=== PATIENT | male | born 1980 | race Caucasian/White ===

== ENCOUNTER 2020-11-30 22:25 | Emergency (ER) | payer SELFPAY ==
[2020-11-30 22:34] VITALS: BP 163/87; PULSE 96; RESP 16; TEMP 36.6; O2SAT 95; BMI 27.3
--- NOTE | 2020-11-30 23:40 | ED_ITS ---
HPI - Extremity Problem General: Chief complaint: Extremity Injury, Upper Stated complaint: hand assessment Time Seen by Provider: 11/30/20 23:25 Source: patient Mode of arrival: ambulatory Limitations: no limitations History of Present Illness: HPI Narrative: Patient is a 40-year-old male who presents to ED today with known open fractures to his left third and fourth fingers. He states 2 days ago a grinding wheel struck him on his left hand causing lacerations and open displaced fractures. He was seen at [place] ED and was recommended transfer to [place] for hand surgery. Patient has transfer form/paperwork with him that states he would be POV however patient states he never ended up going because he would not have a ride home. He states since his visit at [place] they fingers are now extremely swollen and more painful. MD Complaint: extremity pain and extremity swelling Onset (ago): day(s) Associated symptoms: Deny chest pain or fever(s) Review of Systems Const: Denies: fever(s), chills, body aches, fatigue or malaise Card: Denies: chest pain Resp: Denies: dyspnea GI: Denies: abdominal pain Musc: Reports: extremity pain (L hand), extremity swelling (L hand), joint pain (L finger) and joint swelling Skin/Breast: Reports: other (lacerations) Neuro: Denies: numbness in extremities or sensory changes Physical Exam Const: COMMON NORMALS: no acute distress, average body habitus, patient oriented x3, no limitations, healthy appearing, alert and well nourished Resp: COMMON NORMALS: normal respiratory effort and clear to auscultation bilaterally AUSCULTATION: clear to auscultation bilaterally Cardio: COMMON NORMALS: regular rate and regular rhythm RATE: regular rate RHYTHM: regular rhythm Extremity: OTHER: patient has diffuse swelling throughout dorsum of L hand; he has deep extensive lacerations to 4th finger over dorsal proximal phalanx and 3rd finger over dorsal PIP; both digits are extremely swollen with virtually zero ROM secondary to this; cap refill normal; sensory intact; no purulent drainage noted Neuro: COMMON NORMALS: patient oriented x3 SENSORIUM/ORIENTATION: Yes alert Course Consultations: Consultation #1: Dr. Gomez hand surgery-would be available to see patient in office next week Consultation #2: Dr. Boogie hand surgery-states his office can contact patient on Wednesday and see then Vital Signs: Vital signs: Vital Signs Temperature 97.8 F 11/30/20 22:34 Pulse Rate 98 12/01/20 00:00 Respiratory Rate 17 12/01/20 00:16 Blood Pressure 163/87 11/30/20 22:34 Pulse Oximetry 98 12/01/20 00:16 MDM - Extremity (Nontraumatic) MDM Narrative: Medical decision making narrative: According to patient and transfer paperwork that he has, patient received adequate medical screening in [place] and had an accepting hand surgeon at the time in [place]. Unfortunately patient refused to complete this transfer stating that [place] was too far away and he did not have a ride home. He is now requesting that I transfer him to [place]. I have spoken to Dr. Price and Dr. Hawley at [facility], both of which state this is not an emergency and would see him in office this week. Wounds were copiously irrigated and redressed and will be re-splinted. Dr. Hawley's office stated they could contact patient on Wednesday (closed on Wednesday because of holiday). Transfer line was given updated phone numbers. Patient given 1g ancef here and placed on Keflex. Strict return to ED precautions given. Lab Data: Labs: Lab Results 11/30/20 11/30/20 Range/Units 23:57 23:57 WBC 7.3 (4.0-10.0) 10^3/ uL RBC 4.44 (4.1-5.3) 10^6/u L Hgb 13.2 (11.7-16.6) g/dL Hct 39.6 L (42.0-52.0) % MCV 89.2 (80-94) fL MCH 29.7 (28.0-34.0) pg MCHC 33.3 (30.0-36.0) g/dL RDW 12.4 (12.1-15.1) % Plt Count 258 (130-400) 10^3/c mm MPV 9.4 (7.4-10.4) fL Neut % (Auto) 45.8 % Lymph % (Auto) 38.9 % [place] % (Auto) 10.1 % Eos % (Auto) 4.4 % Baso % (Auto) 0.5 % Neut # (Auto) 3.35 (1.8-7.7) 10^3/u L Lymph # (Auto) 2.8 (0.8-4.8) 10^3/u L [place] # (Auto) 0.7 (0.2-0.9) 10^3/u L Eos # (Auto) 0.3 (0.0-0.8) 10^3/u L Baso # (Auto) 0.0 (0.0-0.1) 10^3/u L Nucleated RBC % (a uto) 0 % Nucleated RBCs # 0.0 /100WBC Sodium 139 (136-145) mmol/L Potassium 3.9 (3.5-5.1) mmol/L Chloride 106 (98-107) mmol/L Carbon Dioxide 27 (22-29) mmol/L Anion Gap 9.9 (5-19) BUN 10 (6-20) mg/dL Creatinine 0.9 (0.7-1.2) mg/dL GFR Calculation 93.9 (90-130) mL/min Glucose 70 (65-115) mg/dL Calculated Osmolal ity 285 (285-295) mOsm/k g Calcium 8.9 (8.5-10.5) mg/dL Total Bilirubin 0.3 (0.15-1.2) mg/dL AST 20 (0-40) U/L ALT 17 (0-41) U/L Alkaline Phosphata se 78 (40-130) IU/L C-Reactive Protein 12.9 H (0.0-4.9) mg/L Total Protein 6.9 (6.6-8.7) g/dL Albumin 4.0 (3.5-5.2) g/dL Globulin 2.9 (1.3-4.6) g/dL Imaging Data^: XR L hand: Radiologist's impression: [facility] [address] [place] [address] XRay Report Signed Patient: Michael Velez Unit #: [id number] : 1980 Age/Sex: 40 / M ADM Date: 11/30/20 Loc: ER Room/Bed: Attending Dr: Ordering Provider/Ordering MD: Whitney Young Date of Service: 11/30/20 Procedure(s): XR hand LT min 3V* [id number] Accession Number(s): [id number] Report Number: [id number] PROCEDURE INFORMATION: Exam: XR Left Hand Exam date and time: 11/30/2020 11:39 PM Age: 40 years old Clinical indication: Injury or trauma; Injury details: Caught left hand in circular saw 3 days ago. Lacerations and swelling TECHNIQUE: Imaging protocol: XR Left hand. Views: 3 or more views. COMPARISON: No relevant prior studies available. FINDINGS: Bones/joints: Comminuted fracture through the midshaft middle finger proximal phalanx with displacement and angulation multiple tiny bone fragments consistent circular saw injury. Oblique fracture through the proximal shaft of the ring finger proximal phalanx with displacement and angulation. Soft tissues: Normal. XR/XR hand LT min 3V* [id number] IMPRESSION: 1. Comminuted fracture through the midshaft middle finger proximal phalanx with displacement and angulation multiple tiny bone fragments consistent circular saw injury. 2. Oblique fracture through the proximal shaft of the ring finger proximal phalanx with displacement and angulation. Dictated By: Joey Torrez MD Signed By: Joey Torrez MD Signed Date/Time: 12/01/20 010 DD/ 005 Discharge Plan Discharge Patient Disposition: Home Clinical Impression: Open fracture of phalanx of left middle finger Qualifiers: Encounter type: initial encounter Phalanx: proximal Fracture alignment: displaced Qualified Code(s): S62.613B - Displaced fracture of proximal phalanx of left middle finger, initial encounter for open fracture Open fracture of phalanx of left ring finger Qualifiers: Encounter type: initial encounter Phalanx: proximal Fracture alignment: nondisplaced Qualified Code(s): S62.645B - Nondisplaced fracture of proximal phalanx of left ring finger, initial encounter for open fracture Condition: Stable Prescriptions: New hydrocodone-acetaminophen 5-325 mg tablet 1 tab PO Q6H PRN (Reason: pain) Qty: 20 RF: 0 cephalexin 500 mg capsule 500 mg PO Q6H 7 Days Qty: 28 RF: 0 Discharge Orders: Discharge ED (Routine); Ordered 12/01/20 Ordered By: Whitney Young Patient Instructions: Opioid Safety Activity Restrictions/Additional Instructions: [facility] is committed to fighting the nationwide opiate epidemic. We are providing ALL patients with information regarding opiate safety. If you received opiate pain medication during your stay or if you received a prescription for opiate pain medication-please review this handout. If not, you may disregard. Thank you. As we discussed Dr. Hawley with [facility] hand surgery (his office) should contact you on Wednesday with follow up appointment. You need to begin your antibiotics immediately. Elevate the extremity to help with swelling. You need to return to the emergency department for worsening pain, swelling, purulent discharge, severe redness or heat to the fingers and hand, streaking up your arm, or any other concerns you may have. Coding Level of Care Code ED Radiographer Angiogram for Russ Zafar
[2020-12-01] VITALS: PULSE 98; RESP 17; O2SAT 98
[2020-12-01 00:02] LABS: Basophils % 0.5 %; Eosinophils # 0.3 10^3/uL (0.0-0.8); Eosinophils % 4.4 %; Hematocrit 39.6 % (42.0-52.0); Hemoglobin 13.2 g/dL (11.7-16.6); Lymphocytes # 2.8 10^3/uL (0.8-4.8); Lymphocytes % 38.9 %; Mean Corpuscular HGB Conc 33.3 g/dL (30.0-36.0); Mean Corpuscular Hemoglobin 29.7 pg (28.0-34.0); Mean Corpuscular Volume 89.2 fL (80-94); Mean Platelet Volume 9.4 fL (7.4-10.4); Monocytes # 0.7 10^3/uL (0.2-0.9); Monocytes % 10.1 %; Neutrophils # 3.35 10^3/uL (1.8-7.7); Neutrophils % 45.8 %; Nucleated Red Blood Cells % 0 %; Platelet Count 258 10^3/cmm (130-400); Red Blood Count 4.44 10^6/uL (4.1-5.3); Red Cell Distribution Width 12.4 % (12.1-15.1); White Blood Count 7.3 10^3/uL (4.0-10.0)
[2020-12-01 00:16] VITALS: RESP 17; O2SAT 98
[2020-12-01] MEDS: morphine 4 mg/mL SDV 1 mL IVP (00:16)
[2020-12-01] MEDS: ceFAZolin 1,000 mg SDV 1000 MG IVP (00:16)
[2020-12-01] MEDS: ondansetron 2 mg/ML SDV 2 mL 4 MG IVP (00:17)
[2020-12-01 00:31] LABS: Alanine Aminotransferase 17 U/L (0-41); Alkaline Phosphatase 78 IU/L (40-130); Anion Gap 9.9 (5-19); Aspartate Amino Transferase 20 U/L (0-40); Blood Urea Nitrogen 10 mg/dL (6-20); C Reactive Protein 12.9 mg/L (0.0-4.9); Calcium 8.9 mg/dL (8.5-10.5); Carbon Dioxide 27 mmol/L (22-29); Chloride 106 mmol/L (98-107); Globulin 2.9 g/dL (1.3-4.6); Glomerular Filtration Rate 93.9 mL/min (90-130); Glucose 70 mg/dL (65-115); Osmolality Calculated 285 mOsm/kg (285-295); Potassium 3.9 mmol/L (3.5-5.1); Sodium 139 mmol/L (136-145); Total Bilirubin 0.3 mg/dL (0.15-1.2); Total Protein 6.9 g/dL (6.6-8.7)
--- NOTE | 2020-12-01 01:26 | PC.NURSE ---
Patient sent home with 4 tabs hydrocodone/acetaminophen 5mg/325mg to take at home per provider order. Patient also sent home with 4 tabs cephalexin 500 mg PO per provider order.
[2020-12-01 01:39] VITALS: BP 149/99; PULSE 89; RESP 17; TEMP 36.6; O2SAT 99
--- NOTE | 2020-12-03 10:41 | DCPLANNER ---
disaster recovery manager called the office of Dr. Hawley, [facility] hand surgery. disaster recovery manager was told that patient had a follow up appointment scheduled for today, 12.03.20, at 11:20 and patient is aware of appointment.
--- NOTE | 2021-01-01 13:33 | DCPLANNER ---
Patient had a follow up appointment scheduled for 12.03.20 with Yomaira snow - patient did not attend appointment.
== END 2020-12-01 01:43 | disposition home or self-care (01) ==
PROVIDERS: Emergency Provider Physician Assistant
DX: S62.613B Displaced fracture of proximal phalanx of left middle finger, initial encounter for open fracture (principal); S62.645B Nondisplaced fracture of proximal phalanx of left ring finger, initial encounter for open fracture; W29.8XXA Contact with other powered hand tools and household machinery, initial encounter
CPT/HCPCS: 73130; 80053; 85025; 86140; 96374; 96375; 99283; J0690; J2270; J2405

== ENCOUNTER 2024-02-07 01:41 | Emergency (ER) | payer MEDICAID, SELFPAY ==
[2024-02-07 01:44] VITALS: BP 141/102; PULSE 82; RESP 16; TEMP 36.6; O2SAT 98; BMI 31.0
[2024-02-07 01:48] VITALS: BP 141/102; PULSE 81; O2SAT 98
--- NOTE | 2024-02-07 01:59 | XRR_ITS ---
PROCEDURE INFORMATION: Exam: XR Right Finger(s) Exam date and time: 02/07/2024 2:05 AM Age: 44 years old Clinical indication: Fingers; Right; Finger(s); Patient HX: C/O worsening pain and swelling to 2nd digit since having a splinter stuck in finger a week ago. Open wound to distal phalange. ; Additional info: Index finger pain and swelling TECHNIQUE: Imaging protocol: Radiologic exam of the right fingers. Views: Minimum 2 views. COMPARISON: No relevant prior studies available. FINDINGS: Bones/joints: There is no acute fracture or dislocation. If symptoms persist, follow-up imaging in several days may be useful to exclude an occult or subtle fracture. Soft tissues: There is prominent diffuse soft tissue swelling involving the right 2nd digit. No visible/definite radiopaque soft tissue foreign body. No visible soft tissue gas. XR/XR finger RT min 2V [id number] IMPRESSION: 1. Prominent soft tissue swelling. No definite soft tissue foreign body. 2. No acute fracture or dislocation.
--- NOTE | 2024-02-07 02:02 | ED_ITS ---
HPI - Extremity Problem 2 General: Chief complaint: Extremity Injury, Upper Stated complaint: Swelling of right pointer Finger Time Seen by Provider: 02/07/24 01:52 History of Present Illness: 44-year-old male who believes he got a p iece of particle board stuck in his right index finger a week or so ago. He has had increased swelling, redness, and pain for the last 5 days or so. Pain is tracking into his hand now. He denies fever. No vomiting. He has an opening to the lateral side of his finger with bleeding present. Related Data Previous Rx's Medication Instructions Recorded hydrocodone 5 mg-acetaminophen 325 1 tab PO Q6H PRN pain #7 tabs 02/07/24 mg tablet ketorolac 10 mg tablet 10 mg PO TID PRN pain #10 tabs 02/07/24 sulfamethoxazole 800 2 tab PO DAILY 10 days #40 tabs 02/07/24 mg-trimethoprim 160 mg tablet (Bactrim DS) Allergies Allergy/AdvReac Type Severity Reaction Status Date / Time No Known Allergies Allergy Verified 11/30/20 22:39 Physical Exam 2 Const: COMMON NORMALS: no acute distress GENERAL APPEARANCE: cooperative; not ill appearing and not frail appearing HENMT: COMMON NORMALS: normocephalic HEAD & SCALP: normocephalic Eye: COMMON NORMALS: Equal, round and reactive pupils present and EOMs intact bilaterally PUPIL: Yes Equal, round and reactive pupils present Resp: COMMON NORMALS: normal respiratory effort, No use of accessory muscles and clear to auscultation bilaterally AUSCULTATION: clear to auscultation bilaterally Cardio: COMMON NORMALS: regular rate and regular rhythm RATE: regular rate RHYTHM: regular rhythm Extremity: NARRATIVE EXTREMITY EXAM: Examination of the right upper extremity reveals right index finger redness, significant swelling, and warmth. There is a small opening to the lateral side of the finger with bloody discharge present. Sensation is intact. Capillary refill is intact and normal. Radial and ulnar pulses are normal. The patient cannot bend his finger fully or extend fully, but there is no excruciating pain with movement. Procedures Abscess I/D Site: upper extremity (Right index finger) Side (if applicable): right Sedation/analgesia: fentanyl Local Anesthetic: lidocaine 1% and bupivacaine 0.5% Amount of anesthesia used (mL): 6 Technique: incised with #11 blade Amount of fluid expressed (mL): 6 Irrigation: Yes Packing used?: plain Course 2 Vital Signs: Vital signs: Vital Signs Temperature 97.9 F 02/07/24 01:44 Pulse Rate 76 02/07/24 04:11 Respiratory Rate 16 02/07/24 01:44 Blood Pressure 133/84 02/07/24 04:11 Pulse Oximetry 99 02/07/24 04:11 Oxygen Delivery Me thod Room Air 02/07/24 03:35 MDM - Extremity (Nontraumatic) Medical Decision Making Patient is afebrile. Vitals are normal. He does not show signs of definite septic tenosynovitis. Small incision is made near the opening of the skin on the lateral side of right index finger. A significant amount of old blood, and purulent material is expressed. No definite foreign body. It is packed with ribbon gauze. He tolerated the procedure well. He is given IV vancomycin here. He will go home on Bactrim. To return for worsening symptoms. Lab Data 02/07/24 02:02 02/07/24 02:02 Radiology Impressions Finger X-Ray 02/07/24 01:59 IMPRESSION: 1. Prominent soft tissue swelling. No definite soft tissue foreign body. 2. No acute fracture or dislocation. Laboratory Results WBC 9.69 10^3/uL (3.29-11.43) 02/07/24 02:02 RBC 5.41 10^6/uL (3.85-5.65) 02/07/24 02:02 Hgb 16.10 g/dL (11.27-16.99) 02/07/24 02:02 Hct 47.8 % (37-53) 02/07/24 02:02 MCV 88.4 fl (82-101) 02/07/24 02:02 MCH 29.8 pg (27-33) 02/07/24 02:02 MCHC 33.7 g/dL (30-55) 02/07/24 02:02 RDW 12.2 % (12.1-15.1) 02/07/24 02:02 Plt Count 311 10^3/cmm (157-399) 02/07/24 02:02 MPV 9.3 fL (7.4-10.4) 02/07/24 02:02 Neut % (Auto) 59.2 % 02/07/24 02:02 Lymph % (Auto) 27.8 % 02/07/24 02:02 [place] % (Auto) 8.5 % 02/07/24 02:02 Eos % (Auto) 3.7 % 02/07/24 02:02 Baso % (Auto) 0.4 % 02/07/24 02:02 Neut # (Auto) 5.74 10^3/uL (1.8-7.7) 02/07/24 02:02 Lymph # (Auto) 2.7 10^3/uL (0.8-4.8) 02/07/24 02:02 George # (Auto) 0.8 10^3/uL (0.2-0.9) 02/07/24 02:02 Eos # (Auto) 0.4 10^3/uL (0.0-0.8) 02/07/24 02:02 Baso # (Auto) 0.0 10^3/uL (0.0-0.1) 02/07/24 02:02 Nucleated RBC % (auto) 0 % 02/07/24 02:02 Nucleated RBCs # 0.0 /100WBC 02/07/24 02:02 ESR 8 mm/hr (0-10) 02/07/24 02:02 Sodium 138 mmol/L (136-145) 02/07/24 02:02 Potassium 3.4 mmol/L (3.5-5.1) L 02/07/24 02:02 Chloride 100 mmol/L (98-107) 02/07/24 02:02 Carbon Dioxide 28 mmol/L (22-29) 02/07/24 02:02 Anion Gap 13.4 (5-19) 02/07/24 02:02 BUN 10 mg/dL (6-20) 02/07/24 02:02 Creatinine 0.8 mg/dL (0.7-1.2) 02/07/24 02:02 GFR Calculation 105.5 mL/min (90-130) 02/07/24 02:02 Glucose 108 mg/dL (65-115) 02/07/24 02:02 Calculated Osmolality 286 mOsm/kg (285-295) 02/07/24 02:02 Calcium 8.8 mg/dL (8.5-10.5) 02/07/24 02:02 Total Bilirubin 0.2 mg/dL (0.15-1.2) 02/07/24 02:02 AST 14 U/L (0-40) 02/07/24 02:02 ALT 13 U/L (0-41) 02/07/24 02:02 Alkaline Phosphatase 95 U/L (40-130) 02/07/24 02:02 C-Reactive Protein 4.7 mg/L (0.0-4.9) 02/07/24 02:02 Total Protein 7.3 g/dL (6.6-8.7) 02/07/24 02:02 Albumin 3.9 g/dL (3.5-5.2) 02/07/24 02:02 Globulin 3.4 g/dL (1.3-4.6) 02/07/24 02:02 All radiology interpretation(s) finalized by discharge Discharge Plan Discharge Patient Disposition: Home Clinical Impression: Cellulitis and abscess of finger, unspecified Condition: Stable Prescriptions: New ketorolac 10 mg tablet 10 mg PO TID PRN (Reason: pain) Qty: 10 0RF Bactrim DS 800-160 mg tablet 2 tab PO DAILY 10 Days Qty: 40 0RF Changed hydrocodone-acetaminophen 5-325 mg tablet 1 tab PO Q6H PRN (Reason: pain) Qty: 7 0RF Discharge Orders: Discharge ED (Routine); Ordered 02/07/24 Ordered By: Joby Durant Referrals: Timothy Bella DO [Physician] - 4-7 days Patient Instructions: Abscess (ED), Opioid Safety, Pain Management Activity Restrictions/Additional Instructions: Keep area clean and dry for 24 hours, then you may wash with soap and running water. Do not soak or submerge. Packing will likely fall out on its own which is fine. Allow the open area to heal on its own. Antibiotics as directed. Ice can help with swelling and pain. Alternate pain medications that were prescribed. Return for increasing pain despite treatment, streaking redness up the finger despite 2-3 more doses of antibiotics, worsening swelling despite treatment, any other concerning symptoms. Call orthopedics later this morning for a follow-up appointment later this week and wound check. Stand Alone Forms: Work/School Release Coding Level of Care Code ED Offshore Wind Operations Manager for Russ Zafar
[2024-02-07 02:07] LABS: Basophils % 0.4 %; Eosinophils # 0.4 10^3/uL (0.0-0.8); Eosinophils % 3.7 %; Hematocrit 47.8 % (37-53); Lymphocytes # 2.7 10^3/uL (0.8-4.8); Lymphocytes % 27.8 %; Mean Corpuscular HGB Conc 33.7 g/dL (30-55); Mean Corpuscular Hemoglobin 29.8 pg (27-33); Mean Corpuscular Volume 88.4 fl (82-101); Mean Platelet Volume 9.3 fL (7.4-10.4); Monocytes # 0.8 10^3/uL (0.2-0.9); Monocytes % 8.5 %; Neutrophils # 5.74 10^3/uL (1.8-7.7); Neutrophils % 59.2 %; Nucleated Red Blood Cells % 0 %; Platelet Count 311 10^3/cmm (157-399); Red Blood Count 5.41 10^6/uL (3.85-5.65); Red Cell Distribution Width 12.2 % (12.1-15.1); White Blood Count 9.69 10^3/uL (3.29-11.43)
[2024-02-07] MEDS: vancomycin 1,250 MG/250 ML PIGGYBACK 166.67 MG IV (02:13)
[2024-02-07] MEDS: ketorolac 30 mg/mL INJ IVP (02:13)
[2024-02-07 02:18] VITALS: BP 135/86; PULSE 71; O2SAT 98
[2024-02-07 02:29] LABS: Alanine Aminotransferase 13 U/L (0-41); Albumin Level 3.9 g/dL (3.5-5.2); Alkaline Phosphatase 95 U/L (40-130); Anion Gap 13.4 (5-19); Aspartate Amino Transferase 14 U/L (0-40); Blood Urea Nitrogen 10 mg/dL (6-20); C Reactive Protein 4.7 mg/L (0.0-4.9); Calcium 8.8 mg/dL (8.5-10.5); Carbon Dioxide 28 mmol/L (22-29); Chloride 100 mmol/L (98-107); Creatinine Clr Calc Pharmacy 135.6006; Globulin 3.4 g/dL (1.3-4.6); Glomerular Filtration Rate 105.5 mL/min (90-130); Glucose 108 mg/dL (65-115); Osmolality Calculated 286 mOsm/kg (285-295); Potassium 3.4 mmol/L (3.5-5.1); Sodium 138 mmol/L (136-145); Total Bilirubin 0.2 mg/dL (0.15-1.2); Total Protein 7.3 g/dL (6.6-8.7)
[2024-02-07 02:32] LABS: Erythrocyte Sedimentation Rate 8 mm/hr (0-10)
[2024-02-07] MEDS: fentaNYL 50 mcg/mL INJ 2mL 100 MCG IVP (02:40)
[2024-02-07] MEDS: ondansetron 2 mg/ML SDV 2 mL 4 MG IVP (02:42)
[2024-02-07] MEDS: BUPivacaine 0.5% INJ 10 mL INJECTION (02:49)
[2024-02-07] MEDS: lidocaine 1% 10 ML INJ INJECTION (02:50)
[2024-02-07 03:35] VITALS: BP 115/80; PULSE 71; O2SAT 98
[2024-02-07 04:11] VITALS: BP 133/84; PULSE 76; O2SAT 99
== END 2024-02-07 04:10 | disposition home or self-care (01) ==
PROVIDERS: Emergency Provider Emergency Medicine
DX: L03.011 Cellulitis of right finger (principal); L02.511 Cutaneous abscess of right hand
CPT/HCPCS: 26010; 73140; 80053; 85025; 85651; 86140; 87040; 96365; 96366; 96375; 99284; J1885; J2405; J3010; J3370; J3490

== ENCOUNTER 2024-02-09 16:36 | Emergency (ER) | payer MEDICAID, SELFPAY ==
[2024-02-09 16:46] VITALS: BP 136/83; PULSE 79; RESP 16; TEMP 36.5; O2SAT 98; BMI 29.3
--- NOTE | 2024-02-09 18:12 | ED_ITS ---
HPI - Eye Problem General: Chief complaint: Eye Problems Stated complaint: debris in left eye Time Seen by Provider: 02/09/24 18:00 Source: patient Mode of arrival: ambulatory Limitations: no limitations History of Present Illness: 44-year-old male states that he was work ing with [employer] and using a saw he states he fell he got a piece of wood in his eye this happened 11 he has been having pain in his left eye since then. Patient denies any vision changes denies any worse or improving factors. Associated symptoms: Denies fever(s), headache(s), nausea, neck pain or vomiting Related Data Previous Rx's Medication Instructions Recorded hydrocodone 5 mg-acetaminophen 325 1 tab PO Q6H PRN pain #7 tabs 02/07/24 mg tablet ketorolac 10 mg tablet 10 mg PO TID PRN pain #10 tabs 02/07/24 sulfamethoxazole 800 2 tab PO DAILY 10 days #40 tabs 02/07/24 mg-trimethoprim 160 mg tablet (Bactrim DS) erythromycin 5 mg/gram (0.5 %) eye 1 applic ophthalmic (eye) TID 5 02/09/24 ointment (3.5 gram tube) days #3.5 grams Allergies Allergy/AdvReac Type Severity Reaction Status Date / Time codeine Allergy Unknown Verified 02/09/24 16:49 Review of Systems Const: Denies: fever(s) or chills Eyes: Reports: eye discomfort ENMT: Denies: throat pain or dental pain Card: Denies: chest pain Resp: Denies: dyspnea GI: Denies: abdominal pain, nausea, vomiting or diarrhea Musc: Denies: neck pain or back pain Skin/Breast: Denies: rash Neuro: Denies: headache(s) Physical Exam Const: COMMON NORMALS: no acute distress and patient oriented x3 HENMT: COMMON NORMALS: normocephalic HEAD & SCALP: normocephalic Eye: OTHER: corneal abrasion to left cornea Neck/C-Spine: COMMON NORMALS: full ROM Chest: COMMONS NORMALS: normal inspection of the chest Resp: COMMON NORMALS: normal respiratory effort Extremity: COMMON NORMALS: normal to inspection Neuro: COMMON NORMALS: patient oriented x3 Psych: COMMON NORMALS: mental status grossly normal Skin: COMMON NORMALS: no rashes or lesions noted GENERAL SKIN EXAM: no rashes or lesions noted Course Vital Signs: Vital signs: Vital Signs Temperature 97.7 F 02/09/24 16:46 Pulse Rate 79 02/09/24 16:46 Respiratory Rate 16 02/09/24 16:46 Blood Pressure 136/83 02/09/24 16:46 Pulse Oximetry 98 02/09/24 16:46 Oxygen Delivery Me thod Room Air 02/09/24 16:46 MDM - Eye Problem Medical Decision Making Patient presents here with left eye pain fluorescein did show corneal abrasion patient stable for discharge we will prescribe erythromycin ointment follow-up with PCP return if worsening Medical Records I reviewed the patient's medical records. No radiology studies performed this visit Discharge Plan Discharge Patient Disposition: Home Clinical Impression: Corneal abrasion Qualifiers: Encounter type: initial encounter Laterality: left Qualified Code(s): S05.02XA - Injury of conjunctiva and corneal abrasion without foreign body, left eye, initial encounter Condition: Stable Prescriptions: New erythromycin 5 mg/gram (0.5 %) ointment 1 applic ophthalmic (eye) TID 5 Days Qty: 3.5 0RF No Action ketorolac 10 mg tablet 10 mg PO TID PRN (Reason: pain) Qty: 10 0RF Bactrim DS 800-160 mg tablet 2 tab PO DAILY 10 Days Qty: 40 0RF hydrocodone-acetaminophen 5-325 mg tablet 1 tab PO Q6H PRN (Reason: pain) Qty: 7 0RF Discharge Orders: Discharge ED (Routine); Ordered 02/09/24 Ordered By: Quinten Callahan Discharge Diet: Advance as tolerated Discharge Activity: Resume usual activity Patient Instructions: Corneal Abrasion (ED) Coding Level of Care Code ED Aerobics Teacher for Russ Zafar
[2024-02-09] MEDS: fluorescein 1 mg Strip EYE-BOTH (18:16)
[2024-02-09] MEDS: tetracaine 0.5% Op Soln 4 mL Btl 1 DROP EYE-BOTH (18:16)
--- NOTE | 2024-02-09 18:21 | PC.NURSE ---
pt ambulated to the visual acuity chart and test was preformed. results are as follows: Bilateral- 20/30 Right- 20/30 Left- 20/50 pt ambulated back to bed in stable condition.
[2024-02-09 18:34] VITALS: BP 162/113; PULSE 72; O2SAT 100
== END 2024-02-09 18:36 | disposition home or self-care (01) ==
PROVIDERS: Emergency Provider Emergency Medicine
DX: S05.02XA Injury of conjunctiva and corneal abrasion without foreign body, left eye, initial encounter (principal); W44.F9XA Other object of natural or organic material, entering into or through a natural orifice, initial encounter
CPT/HCPCS: 99283